=== PATIENT | female | born 1995 | race Caucasian/White ===

== ENCOUNTER 2018-03-05 14:30 | Outpatient (RCR) | payer BC, SELFPAY | END 2018-03-05 14:31 | disposition home or self-care (01) | LOC: PT 14:30 | PROVIDERS: Family Provider Emergency Medicine; Visit Provider Orthopaedic Surgery | DX: Z96.7 Presence of other bone and tendon implants (principal); Z87.81 Personal history of (healed) traumatic fracture | CPT/HCPCS: 97010; 97014; 97110; 97163; G0283 ==

== ENCOUNTER 2025-06-22 12:37 | Emergency (ER) | payer OTHER, SELFPAY ==
[2025-06-22 12:51] VITALS: BP 140/98; PULSE 112; RESP 16; TEMP 37.2; O2SAT 96; BMI 43.7
[2025-06-22 13:15] LABS: Hematocrit 43.9 % (37.0-47.0); Hemoglobin 14.7 g/dL (12.2-16.2); Immature Granulocytes % 0.3 %; Mean Corpuscular HGB Conc 33.5 g/dL (31.8-35.4); Mean Corpuscular Hemoglobin 28.2 pg (27.0-31.2); Mean Corpuscular Volume 84.3 fl (81-99); Nucleated Red Blood Cells % 0 %; Platelet Count 265 K/mm3 (142-424); Red Blood Count 5.21 M/mm3 (4.20-5.40); Red Cell Distribution Width-SD 37.8 fL; White Blood Count 14.8 K/mm3 (4.8-10.8)
--- NOTE | 2025-06-22 13:16 | PC.NURSE ---
ARTEMIO Landin at BS for pt justoal
--- NOTE | 2025-06-22 13:20 | PC.NURSE ---
pt ambulatory to restroom without complications
--- NOTE | 2025-06-22 13:21 | ED_ITS ---
Discharge Plan Disposition Patient Disposition: Home, Self-Care Condition: Good Prescriptions Prescriptions: New ondansetron 4 mg tablet,disintegrating 4 mg PO Q6H PRN (Reason: nausea and vomiting) Qty: 10 0RF No Action sertraline 25 MG tablet 25 mg PO DAILYDM lxkembznqwpyhgb-qqhvfgcyx-KG [Bromfed DM] 473 ML syrup 5 - 10 ml PO Q4HP PRN (Reason: Cough) Qty: 300 0RF fluticasone propionate 120 SPR/BOT spray,suspension 2 spr intranasal DAILY Qty: 1 0RF Rx Instructions: each nostril Referrals Follow up/Referrals: Norman Puckett MD [Primary Care Provider, Family Practice] - See instructions Activity Restrictions/Add. Instructions Additional Instructions/Restrictions: Please return to the emergency department with any worsening signs or symptoms. Please utilize your antiemetic medication as prescribed. Please follow-up with your PCP and other providers in the upcoming days/weeks. I recommend good intake with fluids and progress diet as tolerated with solids. Please bring stool sample back to the emergency department registration for the test to be ran. Clinical Impressions Clinical Impression: Nausea vomiting and diarrhea Instructions Patient Instructions: Diarrhea, DI for Nausea in Adults Print Language Print Language: French Discharge ED Provider: Sylvester Kaufman General Adult HPI <ARTEMIO Landin - Last Filed: 06/22/25 14:42> General Chief complaint: Nausea/Vomiting/Diarrhea Stated complaint: vomiting, diarrhea, dehydration, body aches Time Seen by Provider: 06/22/25 13:01 Mode of Arrival: Ambulatory Source of Information: Patient Description of Symptoms (Recalled from ER Triage Doc. by RN): patient states she was suddenly woken at 3am with severe diarrhea, chills, nausea, vomiting, cramping and dizziness. she feels like she may have food poisoning and is dehydrated. History of Present Illness HPI narrative: 29-year-old female presents to the emergency department with a less than 24-hour history of nausea vomiting diarrhea subjective fever chills, malaise, lightheadedness, no presyncopal or syncopal event, no overt vertiginous type symptomatology, no recorded Tmax, started around 3 AM this morning, patient attributes to possible food poisoning , as she ate [employer] , yesterday, does not have similar symptoms, however did have different type of protein , at the restaurant. She endorses crampy abdominal pain that is quite diffuse, she endorses nonbloody nonbilious vomiting and diarrhea, denies any hematochezia, hematemesis or hemoptysis, she denies any urinary symptomatology, no vaginal type symptomatology, patient denies any chest pain shortness of breath, no cough congestion or other URI type symptomatology. Patient has other past medical history consistent with prior appendectomy, asthma, denies any other past medical history, denies any tobacco alcohol or drug use. Initial triage vitals noted for tachycardia otherwise unremarkable Please note that above description of symptoms, in this electronic medical record under categorization of recalled from ER triage doctor by RN are reflective of an initial nursing assessment, however, is not reflective of my full history and physical exam that was personally taken and clarified. Consequentially, this preceding description of symptoms, which may include the patient's categorized chief complaint in the EMR, do not reflect my personal clinical impression, and the ultimate description of history of present illness and patient stated complaints should be deferred to this section of the note. Unless stated otherwise or congruent with this section of the note, additional signs, symptoms, or incongruence should be interpreted as inaccurate with my clinical impression. Onset (ago): hour(s) Related Data Home Medications ?Medication ?Instructions ?Recorded ?Confirmed sertraline 25 mg tablet 25 mg PO DAILYDM Depression 07/01/18 07/01/18 Previous Rx's ?Medication ?Instructions ?Recorded gtvgirygbzlliht-brvkujnjiapdiho-XN 5 - 10 ml PO Q4HP P RN Cough #300 mL 07/01/18 2 mg-30 mg-10 mg/5 mL oral syrup (Bromfed DM) fluticasone propionate 50 2 spr intranasal DAILY ##1 1 09/01/17 mcg/actuation nasal spray,suspension ondansetron 4 mg disintegrating 4 mg PO Q6H PRN nausea and 06/22/25 tablet vomiting #10 tabs Allergies Allergy/AdvReac Type Severity Reaction Status Date / Time No Known Allergies Allergy Verified 07/01/18 10:07 [facility] <ARTEMIO Landin - Last Filed: 06/22/25 14:42> [facility] Disclaimer: The information contained in this section may have been updated after the patient was seen, as this information can be updated by other users. Social History (Updated 06/22/25 @ 14:42 by ARTEMIO Landin) Smoking Status: Never smoker alcohol intake: never current occupational status: other Travel in the last 8 weeks?: None Have you lived/traveled outside US in past 30 days?: No Contact w/someone who lives/traveled outside US past 30 days?: No Exposure to someone with infectious disease in past 14 days?: No Do you have a fever (greater than 100.4 F or 38 C)?: No Have you tested positive for COVID-19?: No Exposed to someone with COVID-19 in past 14 days?: No Do you have a sore throat?: No Do you have a cough?: No Do you have any weakness?: No Do you have any diarrhea?: No Are you experiencing any unusual bleeding?: No Do you have any muscle aches/pain?: No Do you have any abdominal pain?: No Are you experiencing loss of taste or smell?: No <ARTEMIO Landin - Last Filed: 06/22/25 14:42> ROS Obtained: Yes All systems reviewed & no additional complaints except as documented Physical Exam <ARTEMIO aLndin - Last Filed: 06/22/25 14:42> General General appearance: alert and in no apparent distress Comment: Nontoxic-appearing Head Head exam: atraumatic and normocephalic Eye Eye exam: Present PERRL and EOMI ENT ENT exam: Present mucous membranes moist Neck Neck exam: Present normal inspection Chest Chest inspection: Present normal inspection and symmetric chest wall rise Respiratory Respiratory exam: Present normal lung sounds bilaterally; Absent respiratory distress Cardiovascular Cardiovascular exam: Present normal rhythm and tachycardia Abdominal Exam Abdominal exam: Present soft; Absent tenderness, guarding, rebound or rigidity Extremities Exam Extremities exam: Present normal inspection Neurological Exam Neurological exam: Present alert and oriented X3 Psychiatric Psychiatric exam: Present normal affect Skin Skin exam: Present warm and dry Medical Decision Making <ARTEMIO Landin - Last Filed: 06/22/25 14:42> Medical Records Medical records reviewed: Yes I reviewed the patient's medical records. Screening: Per USPSTF and CDC recommendations, given the prevalence of disease in our region, it is our hospital?s policy to screen for HIV and viral Hepatitis for all patients aged 18 and over and those with ongoing risk factors. [place] Inquiry Pt receiving controlled substance: No [place] was queried for this patient: No Vital Signs: 06/22/25 12:51 06/22/25 13:49 06/22/25 14:19 Temperature 99 F Temperature Source Oral Pulse Rate 96 H 81 Pulse Rate [Right Radial] 112 H Respiratory Rate 16 Blood Pressure 134/80 Blood Pressure [Right Arm] 140/98 H Blood Pressure Mean [Right Arm] 112 Blood Pressure Source Manual Cuff/ Palpation Blood Pressure Source [Right Arm] Automatic Cuff Blood Pressure Position Sitting Blood Pressure Position [Right Arm] Supine 02 Sat by Pulse Oximetry 96 98 97 Oxygen Delivery Method Room Air Room Air Room Air Lab Data Lab results reviewed: Yes I reviewed the patient's lab results. Lab Results 06/22/25 13:02: WBC 14.8 H, RBC 5.21, Hgb 14.7, Hct 43.9, MCV 84.3, MCH 28.2, MCHC 33.5, RDW 12.6, Plt Count 265, MPV 10.9 H, Neut % (Auto) 89.6 H, Lymph % (Auto) 4.5 L, [place] % (Auto) 4.8, Eos % (Auto) 0.5, Baso % (Auto) 0.3, Neut # (Auto) 13.2 H, Lymph # (Auto) 0.7, [place] # (Auto) 0.7, Eos # (Auto) 0.1, Baso # (Auto) 0.1, Sodium 141, Potassium 4.1, Chloride 105, Carbon Dioxide 22, Anion Gap 18.1 H, BUN 16, Creatinine 0.80, Estimated Creat Clear 100, Estimated GFR 84, Est GFR ( Amer) 102, Glucose 102 H, Lactate 0.8, Calcium 9.7, Total Bilirubin 0.8, AST 28, ALT 23, Alkaline Phosphatase 94, Total Protein 8.9 H, A lbumin 5.2 H, Globulin 3.7 H, Albumin/Globulin Ratio 1.4, Lipase 112, Serum HCG, Qual Positive 06/22/25 13:15: Urine Color Yellow, Urine Appearance Clear, Urine pH 7.5, Ur Specific [place] 1.015, Urine Protein Trace, Urine Glucose (UA) Negative, Urine Ketones Negative, Urine Blood Negative, Urine Nitrate Negative, Urine Bilirubin Negative, Urine Urobilinogen 0.2, Ur Leukocyte Esterase Negative 06/22/25 13:02 06/22/25 13:02 Orders (Tests/Meds): ED MEDICATIONS Discontinued Medications Generic Name Dose Route Start Last Admin Trade Name Janeth PRN Reason Stop Dose Admin Lactated Ringer's 1,000 mls @ 999 mls/hr 06/22/25 13:10 06/22/25 14:30 Lactated Ringer's 1000 Ml Bag IV 06/22/25 14:10 Infused .Q1H1M ONE Infusion Ondansetron HCl 4 mg 06/22/25 13:10 06/22/25 13:25 Ondansetron 4mg/2ml Vial IV 06/22/25 13:11 4 mg ONCE ONE Administration ORDERS Category Date Time Status Complete Blood Count Auto Diff Stat Lab 06/22/25 13:02 Completed Comprehensive Metabolic Panel Stat Lab 06/22/25 13:02 Completed Diarrhea 23 Panel, PCR Stat Lab 06/22/25 13:11 Ordered HCG Qualitative, Serum Stat Lab 06/22/25 13:02 Completed HIV Combo Stat Lab 06/22/25 13:02 Received Hepatitis C Ab Qual. W/ RFX Stat Lab 06/22/25 13:02 Received Lactic Acid Stat Lab 06/22/25 13:02 Completed Lipase Stat Lab 06/22/25 13:02 Completed Urinalysis and Microscopic Stat Lab 06/22/25 13:15 Results Medical Decision Narrative: 29-year-old female presents emergency department with nausea vomiting diarrhea poor p.o. intake and crampy abdominal pain that started at 3 AM today. Differential diagnose include but not limited to, colitis, ileitis, gastroenteritis, acute UTI, pancreatitis, viral syndrome among others. I discussed this patient's case with the attending physician Dr. Kaufman I did offer full workup and advanced imaging studies to the patient, patient opted to do laboratory studies, receive medication, prior to pursuing advanced imaging. Shared decision making was utilized I believe this appropriate. Patient has now peritonitic abdomen, otherwise benign abdominal exam with waxing and waning abdominal type cramps. Will obtain basic of laboratory studies, diarrhea PCR panel, lactic acid lipase of urinalysis will give 1 L LR IV, and 4 mg of Zofran were given for nausea. CBC is notable for leukocytosis of 14.8, otherwise unremarkable. CMP noted for anion gap at 18.1, no lactic acidosis, lipase within normal limits. UA is unremarkable, negative hematuria negative nitrites negative leukocyte esterase. Reexamination of the patient at approximately 2:30 PM, patient states her nausea is improved fluids did help her symptomatology, patient states she does not currently have any abdominal pain, abdominal exam remains benign, patient would like to be discharged home to self-care, unable to give stool sample here in the emergency department, however will send patient home with stool sample kit and she can bring back to the emergency department if need be for stool sample lab I believe patient most likely has gastroenteritis, but not invasive type, I did notify the patient about all laboratory results, with leukocytosis, at this time we will not pursue any advanced imaging with nonperitoneal/benign abdominal exam. Will prescribe the patient 4 mg p.o. sublingual Zofran as needed for symptomatic relief, recommend p.o. fluids good p.o. intake/progress diet as tolerated, strict ED return precaution given. Patient voiced understanding and agreement with the current treatment plan/discharge plan. Patient follow-up with PCP and other providers in the upcoming days/weeks. <Sylvester Kaufman MD - Last Filed: 06/22/25 14:43> Vital Signs: 06/22/25 12:51 06/22/25 13:49 06/22/25 14:19 Temperature 99 F Temperature Source Oral Pulse Rate 96 H 81 Pulse Rate [Right Radial] 112 H Respiratory Rate 16 Blood Pressure 134/80 Blood Pressure [Right Arm] 140/98 H Blood Pressure Mean [Right Arm] 112 Blood Pressure Source Manual Cuff/ Palpation Blood Pressure Source [Right Arm] Automatic Cuff Blood Pressure Position Sitting Blood Pressure Position [Right Arm] Supine 02 Sat by Pulse Oximetry 96 98 97 Oxygen Delivery Method Room Air Room Air Room Air Lab Data Lab Results 06/22/25 13:02: WBC 14.8 H, RBC 5.21, Hgb 14.7, Hct 43.9, MCV 84.3, MCH 28.2, MCHC 33.5, RDW 12.6, Plt Count 265, MPV 10.9 H, Neut % (Auto) 89.6 H, Lymph % (Auto) 4.5 L, [place] % (Auto) 4.8, Eos % (Auto) 0.5, Baso % (Auto) 0.3, Neut # (Auto) 13.2 H, Lymph # (Auto) 0.7, [place] # (Auto) 0.7, Eos # (Auto) 0.1, Baso # (Auto) 0.1, Sodium 141, Potassium 4.1, Chloride 105, Carbon Dioxide 22, Anion Gap 18.1 H, BUN 16, Creatinine 0.80, Estimated Creat Clear 100, Estimated GFR 84, Est GFR ( Amer) 102, Glucose 102 H, Lactate 0.8, Calcium 9.7, Total Bilirubin 0.8, AST 28, ALT 23, Alkaline Phosphatase 94, Total Protein 8.9 H, A lbumin 5.2 H, Globulin 3.7 H, Albumin/Globulin Ratio 1.4, Lipase 112, Serum HCG, Qual Positive 06/22/25 13:15: Urine Color Yellow, Urine Appearance Clear, Urine pH 7.5, Ur Specific [place] 1.015, Urine Protein Trace, Urine Glucose (UA) Negative, Urine Ketones Negative, Urine Blood Negative, Urine Nitrate Negative, Urine Bilirubin Negative, Urine Urobilinogen 0.2, Ur Leukocyte Esterase Negative Orders (Tests/Meds): ED MEDICATIONS Discontinued Medications Generic Name Dose Route Start Last Admin Trade Name Janeth PRN Reason Stop Dose Admin Lactated Ringer's 1,000 mls @ 999 mls/hr 06/22/25 13:10 06/22/25 14:30 Lactated Ringer's 1000 Ml Bag IV 06/22/25 14:10 Infused .Q1H1M ONE Infusion Ondansetron HCl 4 mg 06/22/25 13:10 06/22/25 13:25 Ondansetron 4mg/2ml Vial IV 06/22/25 13:11 4 mg ONCE ONE Administration ORDERS Category Date Time Status Complete Blood Count Auto Diff Stat Lab 06/22/25 13:02 Completed Comprehensive Metabolic Panel Stat Lab 06/22/25 13:02 Completed Diarrhea 23 Panel, PCR Stat Lab 06/22/25 13:11 Ordered HCG Qualitative, Serum Stat Lab 06/22/25 13:02 Completed HIV Combo Stat Lab 06/22/25 13:02 Received Hepatitis C Ab Qual. W/ RFX Stat Lab 06/22/25 13:02 Received Lactic Acid Stat Lab 06/22/25 13:02 Completed Lipase Stat Lab 06/22/25 13:02 Completed Urinalysis and Microscopic Stat Lab 06/22/25 13:15 Results Medical Decision Narrative: 29-year-old female presents emergency department with nausea vomiting diarrhea poor p.o. intake and crampy abdominal pain that started at 3 AM today. Differential diagnose include but not limited to, colitis, ileitis, gastroenteritis, acute UTI, pancreatitis, viral syndrome among others. I discussed this patient's case with the attending physician Dr. Kaufman I did offer full workup and advanced imaging studies to the patient, patient opted to do laboratory studies, receive medication, prior to pursuing advanced imaging. Shared decision making was utilized I believe this appropriate. Patient has now peritonitic abdomen, otherwise benign abdominal exam with waxing and waning abdominal type cramps. Will obtain basic of laboratory studies, diarrhea PCR panel, lactic acid lipase of urinalysis will give 1 L LR IV, and 4 mg of Zofran were given for nausea. CBC is notable for leukocytosis of 14.8, otherwise unremarkable. CMP noted for anion gap at 18.1, no lactic acidosis, lipase within normal limits. UA is unremarkable, negative hematuria negative nitrites negative leukocyte esterase. Reexamination of the patient at approximately 2:30 PM, patient states her nausea is improved fluids did help her symptomatology, patient states she does not currently have any abdominal pain, abdominal exam remains benign, patient would like to be discharged home to self-care, unable to give stool sample here in the emergency department, however will send patient home with stool sample kit and she can bring back to the emergency department if need be for stool sample lab I believe patient most likely has gastroenteritis, but not invasive type, I did notify the patient about all laboratory results, with leukocytosis, at this time we will not pursue any advanced imaging with nonperitoneal/benign abdominal exam. Will prescribe the patient 4 mg p.o. sublingual Zofran as needed for symptomatic relief, recommend p.o. fluids good p.o. intake/progress diet as tolerated, strict ED return precaution given. Patient voiced understanding and agreement with the current treatment plan/discharge plan. Patient follow-up with PCP and other providers in the upcoming days/weeks. Sylvester Kaufman MD: I was consulted by the MIO, and we discussed the complexity of the problems being addressed. I approved the treatment and management plan for this patient's care in the emergency department, thus performing a substantive portion of the medical decision making. Critical Care <ARTEMIO Landin - Last Filed: 06/22/25 14:42> Critical Care Time Critical Care Time: No
[2025-06-22] MEDS: ONDANSETRON 4MG/2ML VIAL 4 MG IV (13:25)
[2025-06-22] MEDS: LACTATED RINGERS 1000ML 1,000 ML 999 ML IV (13:25)
--- NOTE | 2025-06-22 13:26 | PC.NURSE ---
UA sent to lab
[2025-06-22 13:29] LABS: Microscopic, Urine URINE MICROSCOPIC (MICROSCOPIC)
[2025-06-22 13:45] LABS: Alanine Aminotransferase 23 U/L (12-78); Albumin Level 5.2 g/dl (3.5-5.0); Albumin/Globulin Ratio 1.4 (1.1-1.8); Alkaline Phosphatase 94 U/L (38-126); Anion Gap 18.1 mEq/L (5-15); Aspartate Amino Transferase 28 U/L (14-36); Bilirubin,Total 0.8 mg/dl (0.2-1.3); Blood Urea Nitrogen 16 mg/dl (7-17); Calcium 9.7 mg/dl (8.4-10.2); Carbon Dioxide 22 mmol/L (22.0-30.0); Chloride 105 mmol/L (98-107); Creatinine Clearance Estimated 100 mL/min (50-200); Creatinine,Serum 0.80 mg/dl (0.52-1.04); Estimated Glomerular Filt Rate 84 ml/min (>60); GFR (African American) 102 ML/MIN (>60); Globulin 3.7 g/dL (1.3-3.2); Glucose 102 mg/dl (74-100); Lipase 112 U/L (23-300); Potassium 4.1 mmoL/L (3.5-5.1); Sodium 141 mmol/L (136-145); Total Protein,Serum 8.9 g/dl (6.3-8.2)
[2025-06-22 13:49] VITALS: BP 134/80; PULSE 96; O2SAT 98
[2025-06-22 14:17] LABS: Bilirubin,Urine Negative (Negative); Color,Urine YELLOW (Yellow); Glucose,Urine (UA) Negative (Negative); Ketones,Urine Negative (Negative); Leukocyte Esterase,Urine Negative (Negative); PH,Urine 7.5 (5.0-8.5); Protein,Urine TRACE (Negative); Specific Gravity, Urine 1.015 (1.005-1.030); Urobilinogen,Urine 0.2 EU/dl (0.2)
[2025-06-22 14:19] VITALS: PULSE 81; O2SAT 97
[2025-06-22 14:36] LABS: Hepatitis C Ab Qual. W/ RFX NEGATIVE (Negative)
--- NOTE | 2025-06-22 14:46 | HMH.EDGENADL ---
Discharge Plan Disposition Patient Disposition: Home, Self-Care Condition: Good Prescriptions Prescriptions: New ondansetron 4 mg tablet,disintegrating 4 mg PO Q6H PRN (Reason: nausea and vomiting) Qty: 10 0RF No Action sertraline 25 MG tablet 25 mg PO DAILYDM ggdxqeojdkinmeo-onzraytqv-GC [Bromfed DM] 473 ML syrup 5 - 10 ml PO Q4HP PRN (Reason: Cough) Qty: 300 0RF fluticasone propionate 120 SPR/BOT spray,suspension 2 spr intranasal DAILY Qty: 1 0RF Rx Instructions: each nostril Referrals Follow up/Referrals: Norman Puckett MD [Primary Care Provider, Family Practice] - See instructions Activity Restrictions/Add. Instructions Additional Instructions/Restrictions: Please return to the emergency department with any worsening signs or symptoms. Please utilize your antiemetic medication as prescribed. Please follow-up with your PCP and other providers in the upcoming days/weeks. I recommend good intake with fluids and progress diet as tolerated with solids. Please bring stool sample back to the emergency department registration for the test to be ran. Clinical Impressions Clinical Impression: Nausea vomiting and diarrhea Instructions Patient Instructions: Diarrhea, DI for Nausea in Adults Print Language Print Language: Serbian Discharge ED Provider: Sylvester Kaufman General Adult HPI General Chief complaint: Nausea/Vomiting/Diarrhea Stated complaint: vomiting, diarrhea, dehydration, body aches Time Seen by Provider: 06/22/25 13:01 Mode of Arrival: Ambulatory Source of Information: Patient Description of Symptoms (Recalled from ER Triage Doc. by RN): patient states she was suddenly woken at 3am with severe diarrhea, chills, nausea, vomiting, cramping and dizziness. she feels like she may have food poisoning and is dehydrated. History of Present Illness Onset (ago): hour(s) Related Data Home Medications ?Medication ?Instructions ?Recorded ?Confirmed sertraline 25 mg tablet 25 mg PO DAILYDM Depression 07/01/18 07/01/18 Previous Rx's ?Medication ?Instructions ?Recorded bxhdtpeemjnepin-ekycrngeumhvvgt-EG 5 - 10 ml PO Q4HP PRN Cough #300 mL 07/01/18 2 mg-30 mg-10 mg/5 mL oral syrup (Bromfed DM) fluticasone propionate 50 2 spr intranasal DAILY ##1 12/19/18 mcg/actuation nasal spray,suspension ondansetron 4 mg disintegrating 4 mg PO Q6H PRN nausea and 06/22/25 tablet vomiting #10 tabs Allergies Allergy/AdvReac Type Severity Reaction Status Date / Time No Known Allergies Allergy Verified 07/01/18 10:07 [facility] Disclaimer: The information contained in this section may have been updated after the patient was seen, as this information can be updated by other users. Social History (Updated 06/22/25 @ 14:42 by ARTEMIO Landin) Smoking Status: Never smoker alcohol intake: never current occupational status: other Travel in the last 8 weeks?: None Have you lived/traveled outside US in past 30 days?: No Contact w/someone who lives/traveled outside US past 30 days?: No Exposure to someone with infectious disease in past 14 days?: No Do you have a fever (greater than 100.4 F or 38 C)?: No Have you tested positive for COVID-19?: No Exposed to someone with COVID-19 in past 14 days?: No Do you have a sore throat?: No Do you have a cough?: No Do you have any weakness?: No Do you have any diarrhea?: No Are you experiencing any unusual bleeding?: No Do you have any muscle aches/pain?: No Do you have any abdominal pain?: No Are you experiencing loss of taste or smell?: No Physical Exam General General appearance: alert and in no apparent distress Medical Decision Making Medical Records Screening: Per USPSTF and CDC recommendations, given the prevalence of disease in our region, it is our hospital?s policy to screen for HIV and viral Hepatitis for all patients aged 18 and over and those with ongoing risk factors. Vital Signs: 06/22/25 12:51 06/22/25 13:49 06/22/25 14:19 Temperature 99 F Temperature Source Oral Pulse Rate 96 H 81 Pulse Rate [Right Radial] 112 H Respiratory Rate 16 Blood Pressure 134/80 Blood Pressure [Right Arm] 140/98 H Blood Pressure Mean [Right Arm] 112 Blood Pressure Source Manual Cuff/ Palpation Blood Pressure Source [Right Arm] Automatic Cuff Blood Pressure Position Sitting Blood Pressure Position [Right Arm] Supine 02 Sat by Pulse Oximetry 96 98 97 Oxygen Delivery Method Room Air Room Air Room Air Lab Data Lab Results 06/22/25 13:02: WBC 14.8 H, RBC 5.21, Hgb 14.7, Hct 43.9, MCV 84.3, MCH 28.2, MCHC 33.5, RDW 12.6, Plt Count 265, MPV 10.9 H, Neut % (Auto) 89.6 H, Lymph % (Auto) 4.5 L, [place] % (Auto) 4.8, Eos % (Auto) 0.5, Baso % (Auto) 0.3, Neut # (Auto) 13.2 H, Lymph # (Auto) 0.7, [place] # (Auto) 0.7, Eos # (Auto) 0.1, Baso # (Auto) 0.1, Sodium 141, Potassium 4.1, Chloride 105, Carbon Dioxide 22, Anion Gap 18.1 H, BUN 16, Creatinine 0.80, Estimated Creat Clear 100, Estimated GFR 84, Est GFR ( Amer) 102, Glucose 102 H, Lactate 0.8, Calcium 9.7, Total Bilirubin 0.8, AST 28, ALT 23, Alkaline Phosphatase 94, Total Protein 8.9 H, Albumin 5.2 H, Globulin 3.7 H, Albumin/Globulin Ratio 1.4, Lipase 112, Serum HCG, Qual Positive, HCV Ab LENNY w/Rflx PCR Qn Negative, HIV Ag/Ab Combo Qual Negative 06/22/25 13:15: Urine Color Yellow, Urine Appearance Clear, Urine pH 7.5, Ur Specific [place] 1.015, Urine Protein Trace, Urine Glucose (UA) Negative, Urine Ketones Negative, Urine Blood Negative, Urine Nitrate Negative, Urine Bilirubin Negative, Urine Urobilinogen 0.2, Ur Leukocyte Esterase Negative 06/22/25 13:02 06/22/25 13:02 Orders (Tests/Meds): ED MEDICATIONS Discontinued Medications Generic Name Dose Route Start Last Admin Trade Name Freq PRN Reason Stop Dose Admin Lactated Ringer's 1,000 mls @ 999 mls/hr 06/22/25 13:10 06/22/25 14:30 Lactated Ringer's 1000 Ml Bag IV 06/22/25 14:10 Infused .Q1H1M ONE Infusion Ondansetron HCl 4 mg 06/22/25 13:10 06/22/25 13:25 Ondansetron 4mg/2ml Vial IV 06/22/25 13:11 4 mg ONCE ONE Administration ORDERS Category Date Time Status US transvaginal Stat Exams 06/22/25 14:46 Ordered Complete Blood Count Auto Diff Stat Lab 06/22/25 13:02 Completed Comprehensive Metabolic Panel Stat Lab 06/22/25 13:02 Completed Diarrhea 23 Panel, PCR Stat Lab 06/22/25 13:11 Ordered HCG Qualitative, Serum Stat Lab 06/22/25 13:02 Completed HCG,Quantitative Stat Lab 06/22/25 14:46 Ordered HIV Combo Stat Lab 06/22/25 13:02 Completed Hepatitis C Ab Qual. W/ RFX Stat Lab 06/22/25 13:02 Completed Lactic Acid Stat Lab 06/22/25 13:02 Completed Lipase Stat Lab 06/22/25 13:02 Completed Urinalysis and Microscopic Stat Lab 06/22/25 13:15 Results
[2025-06-22 14:48] LABS: Bacteria,Urine Trace /lpf; Squamous Epithelial Cell,Urine Occasional #/hpf (0-5); WBC,Urine Occasional #/hpf (0-3)
--- NOTE | 2025-06-22 14:59 | PC.NURSE ---
pt to US via [facility]
--- NOTE | 2025-06-22 15:01 | US_ITS ---
PROCEDURE INFORMATION: Exam: US , Transvaginal and US Duplex Artery or Vein, Ovaries, Limited Exam date and time: 06/22/2025 2:57 PM Age: 29 years old Clinical indication: complicated by abdominal or pelvic pain; Lower; First trimester (<14 weeks 0 days); ; Unsure of last lmp PT is breast feeding-- [facility] pending; Additional info: Abd pain, , n/v TECHNIQUE: Imaging protocol: Real-time transvaginal obstetrical ultrasound of the maternal pelvis and a first trimester with image documentation. Transvaginal imaging was used for better evaluation of the fetus, adnexa, and/or cervix. Real-time duplex ultrasound scan of the arterial or venous flow of the ovaries with B-mode, color Doppler flow and spectral waveform analysis, Limited Duplex. Duplex exam was performed to evaluate for torsion and other vascular conditions. COMPARISON: No relevant prior studies available. FINDINGS: GESTATION: Gestation: No intrauterine in the setting of a positive test. heart rate: Not applicable. Placenta: Not applicable. Amniotic fluid (Qualitative): None applicable. MATERNAL: Right ovary/adnexa: Unremarkable right ovarian arterial waveforms. Left ovary/adnexa: Unremarkable left ovarian arterial waveforms. Intraperitoneal space: No intraperitoneal free fluid. IMPRESSION: No intrauterine in the setting of a positive test. Differential considerations include early , early loss, and ectopic . Consider follow-up hCG and ultrasound as clinically warranted.
[2025-06-22 16:14] LABS: HCG Qualitative, Serum Negative (Negative)
[2025-06-22 16:42] VITALS: BP 132/84; PULSE 73; RESP 16; TEMP 36.3; O2SAT 100
--- NOTE | 2025-06-22 18:47 | PC.NURSE ---
I called the pt to inform her the out patient order form for her diarrhea panel is here.
== END 2025-06-22 16:48 | disposition home or self-care (01) ==
PROVIDERS: Physician Assistant; Emergency Provider Emergency Medicine; PCP Emergency Medicine
DX: R11.2 Nausea with vomiting, unspecified (principal); R19.7 Diarrhea, unspecified
CPT/HCPCS: 76817; 76830; 80053; 81001; 83605; 83690; 84702; 84703; 85025; 86803; 87389; 96361; 96374; 99284; 99285; J2405; J7120